=== PATIENT | male | born 1995 | race African-American/Black ===

== ENCOUNTER 2017-08-30 20:55 | Emergency (ER) | payer OTHER ==
[~2017-08-30] VITALS: Ht 188 cm; Wt 83.9 kg
[2017-08-30 22:31] LABS: URINE BILIRUBIN NEGATIVE (Negative); URINE BLOOD 3+ (Negative); URINE CLARITY CLEAR; URINE COLOR YELLOW; URINE GLUCOSE-RANDOM* NEGATIVE (Negative); URINE KETONES NEGATIVE (Negative); URINE LEUKOCYTES 1+ (Negative); URINE NITRITE NEGATIVE (Negative); URINE PROTEIN (DIPSTICK) 1+ (Negative); URINE SPECIFIC GRAVITY 1.025 (1.005-1.035)
[2017-08-30] MEDS ORDERED: FLOMAX0.4 MG PO (22:34)
[2017-08-30] MEDS ORDERED: HYDROCODONE-AP1 EAC6 PO (22:34)
[2017-08-30 22:47] LABS: MUCUS >6 Heavy strn/LPF (None Seen); SQUAMOUS 0-3 Few /LPF (0-3); URINE RBC >20 Many /HPF (0-2)
[2017-08-30 22:48] LABS: CASTS None Seen /LPF (None Seen); CRYSTALS None Seen /LPF (None Seen); URINE WBC 6-15 Few /HPF (0-5)
[2017-08-30] MEDS ORDERED: CIPRO500 MG PO (23:00)
[2017-08-30] MEDS ORDERED: ANUSOL-HC25 MG RECTAL (23:02)
[2017-08-30 23:18] LABS: ABSOLUTE NEUTROPHILS 3.2 thou/uL (1.4-8.2); BASOPHILS 0.8 % (0.0-2.0); EOSINOPHILS 2.9 % (0.0-3.0); HEMATOCRIT 43.7 % (42.0-52.0); HEMOGLOBIN 15.2 gm/dL (14.0-18.0); LYMPHOCYTES 27.9 % (24.0-44.0); MCHC 34.7 g/dL (28.0-37.0); MCV 83.7 fL (80.0-100.0); MONOCYTES 7.1 % (1.0-8.0); PLATELET COUNT 211 thou/uL (150-400); POLYS 61.3 % (36.0-66.0); RBC 5.22 mil/uL (4.50-6.00); RDW 13.9 % (10.5-14.5); WBC 5.3 thou/uL (4.0-11.0)
[2017-08-30 23:26] LABS: CALCIUM 8.9 mg/dL (8.5-10.1); CREATININE 1.3 mg/dL (0.7-1.3); POTASSIUM 4.2 mmol/L (3.5-5.1)
== END 2017-08-31 00:14 | disposition home or self-care (01) ==
LOC: ER 20:55
PROVIDERS: Nurse Practitioner Family
DX: N20.0 Calculus of kidney (principal); K62.89 Other specified diseases of anus and rectum; N39.0 Urinary tract infection, site not specified